=== PATIENT | male | born 1980 | race Caucasian/White ===

== ENCOUNTER 2019-10-13 16:41 | Emergency (ER) | payer OTHER, SELFPAY ==
[2019-10-13 16:44] VITALS: BP 162/97; PULSE 96; RESP 17; TEMP 36.3; O2SAT 100
[2019-10-13] MEDS: TETANUS,DIPHTHERIA,AC PERTUSSIS ADULT (0.5 ML) BOOSTRIX IM (17:48)
--- NOTE | 2019-10-13 20:35 | ED.WOUNDLAC ---
HPI - Wound/Laceration General Chief Complaint: Wound/Laceration Stated Complaint: lac to left hand Time Seen by Provider: 10/13/19 17:06 Source: patient Mode of arrival: ambulatory Limitations: no limitations History of Present Illness HPI narrative: Patient presents with chief complaint of 2 cm laceration to the palmar aspect of left hand that he sustained while working on a vehicle. Patient denies any extensive bleeding or other injuries. Patient continues to have sensation and range of motion to his digits. Patient states that he does not believe he is up-to-date on his tetanus. He denies any other injuries or symptoms. Related Data Home Medications Medication Instructions Recorded Confirmed No Home Medications 10/13/19 10/13/19 Allergies Allergy/AdvReac Type Severity Reaction Status Date / Time No Known Allergies Allergy Verified 10/13/19 16:45 Review of Systems Review of Systems: Narrative: CONSTITUTIONAL: Denies fever, chills, or sweats. EYES: Denies visual changes, redness, or discharge. ENT: Denies rhinorrhea, congestion, sore throat, or otalgia. CARDIOVASCULAR: Denies chest pain, palpitations, or edema. RESPIRATORY: Denies cough or dyspnea. GASTROINTESTINAL: Denies abdominal pain, nausea, vomiting, or diarrhea. GENITOURINARY: Denies dysuria or hematuria. SKIN: Reports laceration denies rash or itching. MUSCULOSKELETAL: Denies back pain, joint pain, or myalgia. NEUROLOGIC: Denies headache, numbness, dizziness, or weakness. PSYCHIATRIC: Denies anxiety or depression. Exam Narrative: Exam Narrative: GENERAL: Well-appearing, well-nourished, and in no acute distress. HEAD: Normocephalic, atraumatic. EYES: PERRLA and EOMI. ENT: Nares clear, no rhinorrhea or epistaxis. Mucous membranes moist. NECK: Supple. No adenopathy or masses. CHEST: Clear to auscultation. No respiratory distress. No wheezes rales or rhonchi HEART: Regular rate and rhythm. EXTREMITIES: Normal range of motion. No edema. SKIN: 2 cm laceration to the palmar aspect of the left palm. No foreign bodies noted. No active bleeding noted. NEURO: No focal deficits. Alert and oriented x3. PSYCH: Normal mood and affect. Course Vital Signs Vital signs: Vital Signs Temperature 97.3 F L 10/13/19 16:44 Pulse Rate 96 10/13/19 16:44 Respiratory Rate 17 10/13/19 16:44 Blood Pressure 162/97 H 10/13/19 16:44 Pulse Oximetry 100 10/13/19 16:44 Temperature 97.3 F L 10/13/19 16:44 Pulse Rate 96 10/13/19 16:44 Respiratory Rate 17 10/13/19 16:44 Blood Pressure 162/97 H 10/13/19 16:44 Pulse Oximetry 100 10/13/19 16:44 Procedures Laceration Laceration 1: Site: hand Side (If applicable): left Size (cm): 2 Description: linear Depth: simple, single layer Local Anesthetic: lidocaine 1% Amount of anesthesia used (mL): 2 Pre-repair: irrigated extensively ====== Skin Level ====== Skin layer closed with: nylon Size (cm): 4-0 Number of sutures: 3 Technique: simple, interrupted ====== Subcutaneous Layer ====== ====== Muscle Layer ====== ====== Tendon Layer ====== Discharge Plan Discharge Clinical Impression: Laceration Patient Disposition: Home, Self-Care Condition: Improved Instructions: Antibiotic Form, Laceration (ED) Additional Instructions: Keep area clean with antibacterial soap and apply antibacterial ointment. Have sutures removed in approximately 7 to 10 days. Follow-up with primary care if any signs of infection present. Return to emergency department if you have any worsening or emergent symptoms. Prescriptions: No Action No Home Medications RF: 0 Follow-up/Referrals: PHYSICIAN,CYTOMETRY TECHNOLOGIST [Primary Care Provider] - Enrique Corea MD [Physician] - Stand Alone Forms: Work/School Release IP Time of Disposition: 18:34 Discharge Date/Time: 10/13/19 18:55
== END 2019-10-13 18:55 | disposition home or self-care (01) ==
PROVIDERS: Emergency Provider Emergency Medicine
DX: S61.412A Laceration without foreign body of left hand, initial encounter (principal); W26.9XXA Contact with unspecified sharp object(s), initial encounter; Z23 Encounter for immunization
CPT/HCPCS: 12001; 90471; 90715; 99282

== ENCOUNTER → 2019-10-15 13:05 | Outpatient (CLI) | payer OTHER, SELFPAY ==
--- NOTE | ~2019-10-15 | XR_ITS ---
XR chest 2V DATE: 10/15/2019 13:20 INDICATION: Wheezing. Tobacco use. TECHNIQUE: 2 views COMPARISON: None FINDINGS: Normal heart size. No hilar or mediastinal enlargement. Moderate bilateral hyperinflation. No pulmonary infiltrate or consolidation, pulmonary vascular congestion or pleural effusion or pneumo thorax. IMPRESSION: Moderate bilateral hyperinflation. No active cardiopulmonary disease Reviewed, dictated and finalized at location B. IMPRESSION: Moderate bilateral hyperinflation. No active cardiopulmonary diseas e
== END ==
PROVIDERS: PCP Emergency Medicine; Visit Provider Emergency Medicine
DX: R06.2 Wheezing (principal); R91.8 Other nonspecific abnormal finding of lung field
CPT/HCPCS: 71046

== ENCOUNTER 2020-02-21 07:29 | Outpatient (CLI) | payer OTHER, SELFPAY ==
--- NOTE | 2020-02-25 09:23 | WPDPFTINT ---
PFT Interpretation PFT Interpretation: This PFT met all criteria for ATS standards and reproducibility FEV/FVC post bronchodilator 64% FEV1 88% FVC 105% TLC 119% RV 140% RV/TLC 35% DLCO 99% when adjusted for alveolar volume but not adjusted for hemoglobin Flow volume loops were normal. Impression: Mild airflow obstruction is present. This pattern may be suggestive of Asthma or COPD. Clinical correlation is advised.
== END 2020-02-21 07:30 | disposition home or self-care (01) ==
PROVIDERS: PCP Emergency Medicine; Visit Provider Internal Medicine Critical Care Medicine
DX: J44.9 Chronic obstructive pulmonary disease, unspecified (principal); R94.2 Abnormal results of pulmonary function studies
CPT/HCPCS: 94060; 94726; 94729

== ENCOUNTER 2020-02-26 09:19 | Outpatient (CLI) | payer OTHER, SELFPAY ==
[2020-02-26 09:46] LABS: Basophils Absolute Auto 0.1 K/mm3 (0.0-0.1); Basophils Percent Auto 0.7 % (0.2-1.2); Eosinophils Absolute Auto 0.2 K/mm3 (0-0.3); Eosinophils Percent Auto 1.9 % (0-4.4); Hematocrit 45.6 % (42.0-52.0); Hemoglobin 15.3 g/dL (14.0-18.0); Immature Granulocyte Absolute 0.04 K/mm3 (0.00-0.031); Immature Granulocyte Percent A 0.5 % (0-0.5); Lymphocytes Absolute Auto 1.45 K/mm3 (0.9-3.2); Lymphocytes Percent Auto 17.5 % (18.3-44.2); Mean Corpuscular HGB Conc 33.6 g/dl (32-36); Mean Corpuscular Hemoglobin 28.8 pg (26-34); Mean Corpuscular Volume 85.7 fl (80-100); Mean Platelet Volume 9.6 fl (7.4-10.4); Monocytes Absolute Auto 0.8 K/mm3 (0.1-0.6); Neutrophils Absolute Auto 5.7 K/mm3 (1.3-6.7); Neutrophils Percent Auto 69.4 % (45.5-73.1); Platelet Count Result 265 k/mm3 (150-375); Red Blood Count 5.32 M/mm3 (4.6-6.20); Red Cell Distribution Width 12.7 % (11.5-14.5); White Blood Count 8.3 K/mm3 (4.5-10.0)
[2020-03-03 11:27] LABS: Alpha-1-Antitrypsin, QN 128 mg/dL (83-199)
== END 2020-02-26 09:20 | disposition home or self-care (01) ==
PROVIDERS: PCP Emergency Medicine; Visit Provider Internal Medicine Critical Care Medicine
DX: J44.9 Chronic obstructive pulmonary disease, unspecified (principal)
CPT/HCPCS: 36415; 82103; 85025

== ENCOUNTER → 2021-03-30 10:02 | Outpatient (CLI) | payer OTHER, SELFPAY ==
--- NOTE | ~2021-03-30 | XR_ITS ---
EXAMINATION: XR chest 2V EXAM DATE: 03/30/2021 10:25 INDICATION: wheezing, hx copd past covid . TECHNIQUE: Frontal and lateral projections of the chest obtained and reviewed. Comparison is made to prior examination from 10/15/2019. FINDINGS: The lungs are clear. There are no pleural effusions. The cardiomediastinal silhouette is within normal limits. There is no pneumothorax suspected. The bones and soft tissues are unremarkab le. IMPRESSION: No acute cardiopulmonary findings. Reviewed, dictated and finalized at location G. [employer]
== END ==
LOC: EXPCRAD 10:04
PROVIDERS: PCP Emergency Medicine; Visit Provider Emergency Medicine
DX: R06.2 Wheezing (principal); Z86.16 Personal history of COVID-19
CPT/HCPCS: 71046

== ENCOUNTER 2021-04-12 07:57 | Outpatient (CLI) | payer OTHER, SELFPAY ==
--- NOTE | 2021-04-20 14:28 | WPDHOMESLEEP ---
Sleep Study - Home Unattended Date of Study: 04/12/21 <Calista Lui DO - Last Filed: 04/20/21 14:38> Ordering Provider: Chalino Cartwright APRN <Calista Lui DO - Last Filed: 04/20/21 14:38> Interpreting Provider: Calista Lui DO <Calista Lui, DO - Last Filed: 04/20/21 14:38> Home Sleep Study Type: Apnea Link Air <Calista Lui DO - Last Filed: 04/20/21 14:38> Height: 1.78 m <Calista Lui DO - Last Filed: 04/20/21 14:38> Weight: 86.183 kg <Calista Lui DO - Last Filed: 04/20/21 14:38> Body Mass Index: 27.2 <Calista Lui DO - Last Filed: 04/20/21 14:38> Neck Circumference (inches): 16.5 <Calista Lui DO - Last Filed: 04/20/21 14:38> [place]: 11 <Calista Lui DO - Last Filed: 04/20/21 14:38> Reason for Sleep Study Daytime hypersomnia, Snoring <Calista Lui DO - Last Filed: 04/20/21 14:38> Sleep History The patient is a 41-year-old male with COPD and anxiety that had a sleep study ordered the Pulmonary group for evaluation of sleep apnea. The patient occasionally awakens from sleep short of breath. He occasionally awakens at night with heartburn, belching or cough. He constantly snores loud enough that others complain. He occasionally has trouble sleeping when he has a [place]. He occasionally wakes up gasping for air throughout the night. He occasionally has breathing problems at night observed by others. He occasionally sweats excessively at night. He occasionally has heart palpitations or irregular heartbeats during the night. He occasionally falls asleep during the day but never while driving. He rarely has trouble at work due to sleepiness. He occasionally experiences loss of muscle tone when extremely emotional. He rarely feels unable to move when falling asleep or waking. He occasionally experiences vivid dreamlike scenes upon awakening or falling asleep. He rarely has nightmares. He occasionally has thoughts racing through his mind. He occasionally feels sad or depressed. He frequently has anxiety. He occasionally kicks during the night. He occasionally notices parts of his body jerk. He occasionally has crawling and aching feelings in the legs as well as leg pain during the night. He rarely grinds of teeth during sleep and rarely awakens with a morning jaw pain. He is occasionally bothered by pain during the day but rarely awakened by pain during the night. He frequently wakes up feeling stiff in the morning with sore or achy muscles. He frequently wakes up with pain in the neck, spine or other joints. He goes to bed at 9:00 p.m. on both weekdays and weekends. It takes him 1-2 hours to fall asleep. He wakes up once or twice throughout the night to use the restroom or get something 8. He is able to fall back asleep within 10-15 minutes. He wakes up at 6:00 a.m. on both weekdays and weekends. He typically gets 6 hours of sleep per night. Will stay in bed for 10 minutes after waking up in the morning. He currently lives with his and child. He does not consume any caffeinated beverages within 2 hours of bedtime. He does not engage in physical exercise before bedtime. He will watch television before falling asleep. He will take naps in afternoon or the evening but they are refreshing. He currently drinks 6 cans of soda per day. He smokes 1 and half packs of cigarettes per day. He will smoke marijuana occasionally. He quit consuming alcohol 7 years ago. <Calista Lui DO - Last Filed: 04/20/21 14:38> [facility] Past Medical History Medical History: Medical History Chronic obstructive pulmonary disease Generalized anxiety disorder Tobacco abuse <Calista Lui DO - Last Filed: 04/20/21 14:38> Surgical History Surgical History: Surgical History (Reviewed 04/20/21 @ 14:34 by Calista Kuhn
[2021-04-20 14:37] VITALS: BMI 27.2
== END 2021-04-13 14:35 | disposition home or self-care (01) ==
LOC: ANHCSM 07:57
PROVIDERS: PCP Emergency Medicine; Visit Provider Nurse Practitioner Family
DX: R06.83 Snoring (principal); G47.10 Hypersomnia, unspecified; G47.33 Obstructive sleep apnea (adult) (pediatric)
CPT/HCPCS: 95806

== ENCOUNTER → 2021-08-30 08:42 | Outpatient (CLI) | payer OTHER, SELFPAY ==
--- NOTE | ~2021-08-30 | XR_ITS ---
EXAMINATION: XR shoulder LT min 2V INDICATION: Left shoulder pain TECHNIQUE: Four views of the left shoulder are submitted. COMPARISON: None FINDINGS: Normal alignment. No fracture. Glenohumeral and acromioclavicular joint spaces are normal. Soft tissues are unremarkable. IMPRESSION: 1. No acute osseous abnormality. Reviewed, dictated and finalized at location A.
== END ==
PROVIDERS: PCP Emergency Medicine; Visit Provider Emergency Medicine
DX: M25.512 Pain in left shoulder (principal)
CPT/HCPCS: 73030

== ENCOUNTER 2023-09-24 08:30 | Emergency (ER) | payer OTHER, SELFPAY ==
--- NOTE | ~2023-09-24 | XR_ITS ---
EXAMINATION: XR chest 2V DATE: 09/24/2023 08:52 INDICATION: Chest pain with dyspnea or wheezing TECHNIQUE: PA and lateral views of the chest were obtained. COMPARISON: Chest radiograph dated 03/30/2021 FINDINGS: The lungs remain clear with no focal airspace opacities, pulmonary edema, pleural effusion or pneumot horax. The cardiomediastinal silhouette is normal. Visualized bones and soft tissues are unremarkable . IMPRESSION: 1. No acute cardiopulmonary disease. Reviewed, dictated and finalized at location A.
--- NOTE | 2023-09-24 08:33 | ECG_ITS ---
Test Date: 2023-09-24 08:36:28 Measurements Intervals [place] Rate: 65 P: -10 CT: 117 QRS: 44 QRSD: 84 T: 36 QT: 352 QTc: 366 Interpretive Statements SINUS RHYTHM WITH SHORT CT INTERVAL BASELINE ARTIFACT- II, III, AVL, AVF BORDERLINE ECG No previous ECG available for comparison Electronically Signed On 09-24-2023 08:42:05 CDT by Cliff Ledbetter D.O.
[2023-09-24 08:35] VITALS: BP 131/98; PULSE 65; RESP 16; TEMP 36.8; O2SAT 97
[2023-09-24 08:41] VITALS: PULSE 66; O2SAT 98
[2023-09-24] MEDS: ASPIRIN 81 MG CHEWABLE TABLET 324 MG PO (08:45)
[2023-09-24 08:47] LABS: Basophils Absolute Auto 0.1 K/mm3 (0.0-0.1); Basophils Percent Auto 0.8 % (0.2-1.2); Eosinophils Absolute Auto 0.2 K/mm3 (0-0.3); Eosinophils Percent Auto 1.6 % (0-4.4); Hematocrit 48.5 % (42.0-52.0); Hemoglobin 16.3 g/dL (14.0-18.0); Immature Granulocyte Absolute 0.05 K/mm3 (0.00-0.031); Immature Granulocyte Percent A 0.4 % (0-0.5); Lymphocytes Absolute Auto 1.65 K/mm3 (0.9-3.2); Lymphocytes Percent Auto 14.2 % (18.3-44.2); Mean Corpuscular HGB Conc 33.6 g/dl (32-36); Mean Corpuscular Hemoglobin 29.4 pg (26-34); Mean Corpuscular Volume 87.5 fl (80-100); Mean Platelet Volume 9.4 fl (7.4-10.4); Monocytes Percent Auto 8.6 % (2.6-8.5); Neutrophils Absolute Auto 8.6 K/mm3 (1.3-6.7); Neutrophils Percent Auto 74.4 % (45.5-73.1); Platelet Count Result 270 k/mm3 (150-375); Red Blood Count 5.54 M/mm3 (4.6-6.20); Red Cell Distribution Width 13.2 % (11.5-14.5); White Blood Count 11.6 K/mm3 (4.5-10.0)
[2023-09-24 08:56] LABS: Alanine Aminotransferase 23 U/L (6-50); Albumin Level 4.6 g/dL (3.5-5.1); Alkaline Phosphatase 69 U/L (38-126); Anion Gap 10 mmol/L (4-12); Aspartate Amino Transferase 23 U/L (17-59); Bilirubin,Total 0.4 mg/dL (0.2-1.3); Blood Urea Nitrogen 25 mg/dL (9-20); Calcium 8.7 mg/dL (8.4-10.2); Carbon Dioxide 20 mmol/L (22-30); Chloride 106 mmol/L (98-107); Estimated Glomerular Filt Rate > 60; Glucose 120 mg/dL (65-110); Lipase 62 U/L (23-300); Potassium 4.3 mmol/L (3.4-5.0); Sodium 136 mmol/L (137-145)
[2023-09-24 08:58] LABS: INR 0.9; Prothrombin Time 12.5 Seconds (11.1-14.7)
[2023-09-24 08:59] LABS: Partial Thromboplastin Time 28.4 Seconds (22.3-36.8)
[2023-09-24 09:08] LABS: Troponin I < 0.012 ng/mL (0.000-0.034)
--- NOTE | 2023-09-24 10:08 | ED.CHESTPAIN ---
HPI - Chest Pain General Chief Complaint: Chest Pain Stated Complaint: chest tightness Time Seen by Provider: 09/24/23 09:54 History of Present Illness HPI narrative: Patient is a 43-year-old male with history of COPD, active smoker, hyperlipidemia, prediabetes here with shortness of breath and chest tightness. He states that symptoms began around 5:00 a.m. this morning. He notes that when he woke up he felt significantly short of breath and wheezy which is similar to prior COPD exacerbations. He then began having some chest tightness which is diffuse across his chest and radiated into his left shoulder. He states symptoms are present for about 4 hours and have now resolved. He is unsure of exertion made his chest pain worse however it did seem to make his shortness of breath worse. he has an increased cough and sputum production with exertion as well. No recent surgery, no history of DVT or PE. He denies fever or chills. No sick contacts. He did see a string cutter about 1 year ago under recommendation of his primary care doctor. He was not experiencing any chest pains at that time but did have a negative stress test and was told he looks good from a cardiac stand point. Related Data Home Medications Medication Instructions Recorded Confirmed atorvastatin 20 mg tablet 20 mg PO 03/28/22 06/02/23 metformin 500 mg tablet,extended 500 mg PO 03/28/22 06/02/23 release 24 hr paroxetine HCl 10 mg tablet (Paxil) 40 mg PO DAILY 09/26/22 06/02/23 aspirin 81 mg tablet,delayed 81 mg PO DAILY 06/02/23 06/02/23 release Allergies Allergy/AdvReac Type Severity Reaction Status Date / Time No Known Allergies Allergy Verified 09/24/23 08:42 Review of Systems Review of Systems: All systems reviewed & are unremarkable except as noted in HPI and below PMFSH Past Medical History Medical History Chronic obstructive pulmonary disease Generalized anxiety disorder Tobacco abuse Surgical History Surgical History History of mandibular surgery Family History Family History Father Cancer Social History Social History (Updated 06/02/23 @ 09:30 by Alyx Diaz MA) Smoking packs per day: 1 Smoking cigarettes per day: 20.0 Years smoked: 25 Smoking pack-years: 25.00 Smoking status: Current every day smoker Second hand tobacco smoke exposure: Yes Alcohol intake: former Substance use: never Substance use type: does not use Living arrangements: with family Occupation/Education: occupation 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 Gender identity (if verbalized by the patient): Male Exam Narrative: GENERAL: Well-appearing, well-nourished, and in no acute distress. HEAD: Normocephalic, atraumatic. EYES: PERRLA and EOMI. ENT: Nares clear. Mucous membranes moist. NECK: Supple. CHEST: Faint wheeze in upper lung davidson bilaterally. No respiratory distress. HEART: Regular rate and rhythm. Normal peripheral pulses. ABDOMEN: Soft, nontender, nondistended. EXTREMITIES: Normal range of motion. No edema. No calf tenderness. SKIN: Warm, dry, no rash. NEURO: No focal deficits. Alert and oriented x3. PSYCH: Normal mood and affect. Course Course Emergency Course: Chart review performed. Patient here with chest pain since 5 am and shortness of breath. Triage vitals normal. Triage protocol lab work reviewed. WBC of 11.6, Electrolytes grossly normal with normal renal function, initial troponin negative. Patient seen evaluated, nontoxic appearing, alert, oriented. He is here with resolved chest tightness and shortness of breath. He does continue to have a wheeze on exam, he notes that his shortness of breath and chest discomfort have resolved and he does not feel as though he needs an additional breathing pao
[2023-09-24 10:09] VITALS: BP 108/84; PULSE 77; RESP 18; O2SAT 98
--- NOTE | 2023-09-24 11:39 | ECG_ITS ---
Test Date: 2023-09-24 11:32:01 Measurements Intervals [place] Rate: 66 P: -24 [place]: 112 QRS: 61 QRSD: 88 T: 53 QT: 346 QTc: 363 Interpretive Statements SINUS RHYTHM WITH SHORT [place] INTERVAL BASELINE ARTIFACT- I, II, III, AVR, AVL, AVF BORDERLINE ECG Compared to ECG 09/24/2023 08:36:28 No significant changes Electronically Signed On 09-24-2023 19:43:09 CDT by Cliff Ledbetter D.O.
[2023-09-24 12:01] LABS: Troponin I < 0.012 ng/mL (0.000-0.034)
[2023-09-24] MEDS: predniSONE 20 MG TABLET 40 MG PO (13:35)
[2023-09-24] MEDS: AMOXICILLIN/CLAVULANATE K 875-125 MG TAB 1 TABLET PO (13:35)
[2023-09-24 13:37] VITALS: BP 117/78; PULSE 76; RESP 19; O2SAT 98
== END 2023-09-24 13:39 | disposition home or self-care (01) ==
PROVIDERS: Emergency Medicine; Emergency Provider Student in an Organized Health Care Education/Training Program; PCP Emergency Medicine
DX: R07.89 Other chest pain (principal); J44.1 Chronic obstructive pulmonary disease with (acute) exacerbation; E78.5 Hyperlipidemia, unspecified; R73.03 Prediabetes; F41.1 Generalized anxiety disorder; Z79.84 Long term (current) use of oral hypoglycemic drugs; Z79.82 Long term (current) use of aspirin; Z79.899 Other long term (current) drug therapy; F17.210 Nicotine dependence, cigarettes, uncomplicated; R94.31 Abnormal electrocardiogram [ECG] [EKG]
CPT/HCPCS: 36415; 71046; 80053; 83690; 84484; 85025; 85610; 85730; 93005; 99284; A9270; J7512

== ENCOUNTER 2024-04-21 13:02 | Emergency (ER) | payer OTHER, SELFPAY ==
--- NOTE | ~2024-04-21 | XR_ITS ---
EXAMINATION: XR lumbar spine 2-3V DATE: 04/21/2024 13:48 INDICATION: 3 days of mid low back pain TECHNIQUE: Anteroposterior and lateral views of the lumbar spine, and cone-down lateral view of the l umbosacral junction were obtained. COMPARISON: None. FINDINGS: 5 degrees lumbar dextrocurvature. Sagittal alignment is normal. Vertebral body and disc heights are n ormal. Mild lumbar facet and bilateral sacroiliac osteoarthritis. Visualized portions of the lung bas es are clear with no pleural effusion. Heart size is normal. IMPRESSION: 1. 5 degrees lumbar dextrocurvature with mild polyarticular osteoarthritis at the lumbar facet and sa croiliac joints. Reviewed, dictated and finalized at location A. [employer] IMPRESSION: 1. 5 degrees lumbar dextrocurvature with mild polyarticular osteoarthritis at t he lumbar facet and sacroiliac joints.
[2024-04-21 13:11] VITALS: BP 133/75; PULSE 104; RESP 16; TEMP 37.2; O2SAT 97
--- NOTE | 2024-04-21 13:24 | ED_ITS ---
HPI - Back Pain/Injury General Chief Complaint: Back Pain/Injury Stated Complaint: lower back pain Time Seen by Provider: 04/21/24 13:15 Source: patient Mode of arrival: ambulatory Limitations: no limitations History of Present Illness HPI Narrative: Abhilash is a 44-year-old male patient presenting to the clinic today with complaints of mid low back pain that started 2 days ago. He denies any known injury. States he has been having some difficulty walking due to the pain. Denies any loss of bowel or bladder. Denies any saddle anesthesia or numbness or tingling going down either leg. He works as a electronic equipment installer. He denies any urinary symptoms. Related Data Allergies Allergy/AdvReac Type Severity Reaction Status Date / Time No Known Allergies Allergy Verified 04/21/24 13:21 Review of Systems Review of Systems: Pertinent positives per HPI. Patient denies any fever, chills, rash, headache, visual changes, dizziness, cough, runny nose, sore throat, shortness of breath, chest pain, palpitations, nausea, vomiting, diarrhea, constipation, abdominal pain, or any urinary issues. [facility], [facility] Past Medical History Medical History Generalized anxiety disorder Tobacco abuse Chronic obstructive pulmonary disease Surgical History Surgical History History of mandibular surgery Family History Family History Father Cancer Social History Social History Smoking packs per day: 1 Smoking cigarettes per day: 20.0 Years smoked: 25 Smoking pack-years: 25.00 Smoking status: Current every day smoker Second hand tobacco smoke exposure: Yes Alcohol intake: former Substance use: never Substance use type: does not use Living arrangements: with family Occupation/Education: occupation 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 Gender identity (if verbalized by the patient): Male Comments At the time of my signature, I reviewed and agree with the nursing past medical, surgical, social, and family history. There is no relevant family history pertinent to the patient complaint. Exam Narrative: General: Well-developed, well nourished, in no apparent distress Head: Normocephalic, atraumatic. Cardio: Regular rate and rhythm, s1 and s2 normal, no murmur appreciated. Resp: Clear to auscultation bilaterally, no rhonchi, rales, wheezing or rubs. Musculoskeletal: No deformity, tender to palpation over L2-L3 L3-L4, grossly normal range of motion, muscle strength strong and equal in BLE. SLT negative, patellar reflexes 2/4 bilaterally, negative foot drop, normal gait and station Course Course Emergency Course: Portions of this record may have been created with voice recognition software. Level of Care: Express Care Visit Vital Signs Vital signs: Vital Signs Temperature 37.2 C 04/21/24 13:11 Pulse Rate 104 H 04/21/24 13:11 Respiratory Rate 16 04/21/24 13:11 Blood Pressure 133/75 04/21/24 13:11 Pulse Oximetry 97 04/21/24 13:11 Oxygen Delivery Room Air 04/21/24 13:11 Temperature 37.2 C 04/21/24 13:11 Pulse Rate 104 H 04/21/24 13:11 Respiratory Rate 16 04/21/24 13:11 Blood Pressure 133/75 04/21/24 13:11 Pulse Oximetry 97 04/21/24 13:11 Oxygen Delivery Room Air 04/21/24 13:11 Vital signs reviewed MDM - Back Pain/Injury MDM Narrative Medical decision making narrative: At the time of visit patient is resting comfortably on the exam table. Patient appears to be nontoxic. Diagnostics: X-ray of the lumbar spine was performed and shows osteoarthritis with a 5 degree dextrocurvature. Plan: I suspect patient has low back pain with osteoarthritis. Prescription for Medrol Dosepak and Flexeril was sent to the pharmacy. Supportive measures were discussed with the patient and they voiced understanding discharge instructions and agrees to treatment plan. Return precautions reviewed Differential Diagnosis Differential diagnosis: Likely lumbar radiculopathy, sciatica, strain of lumbar region and other (Bulging disc) Imaging Data Radiologist's impression: ITS Impressions Lumbar Spine X-Ray 04/21/24 13:53 IMPRESSION: 1. 5 degrees lumbar dextrocurvature with mild polyarticular osteoarthritis at the lumbar facet and sacroiliac joints. Discharge Plan Discharge Clinical Impression: Low back pain Qualifiers: Chronicity: acute Back pain laterality: midline Sciatica presence: without sciatica Qualified Code(s): M54.50 - Low back pain, unspecified Osteoarthritis Qualifiers: Osteoarthritis location: spine Spinal region: lumbosacral Spinal osteoarthritis complication: unspecified spinal osteoarthritis Qualified Code(s): M47.817 - Spondylosis without myelopathy or radiculopathy, lumbosacral region Patient Disposition: Home, Self-Care Condition: Stable Instructions: Antibiotic Form, Acute Low Back Pain (ED), Arthritis (ED) Additional Instructions: Take any prescription medication only as prescribed-Medrol Dosepak and Flexeril Be mindful of sedation precautions given to you if taking a muscle relaxer. May use heat or ice to the affected area Consider massage or chiropractor adjustment if this was discussed with provider May use blue emu, lidocaine patches, or asper cream to affected area- do not apply heat or ice directly over cream- can cause burn. Complete appropriate back stretching exercises. Follow up with your PCP in 3-5 days if symptom persist. Patient Language: Belgian Prescriptions: New methylprednisolone [Medrol (Jaime)] 4 mg tablets,dose pack See Rx Instructions PO .COMPLEX Qty: 21 0RF Rx Instructions: orally per package directions cyclobenzaprine 10 mg tablet 10 mg PO Q8H PRN (Reason: muscle spasm) 7 Days Qty: 21 0RF Follow-up/Referrals: Enrique Corea MD [Primary Care Provider] - Stand Alone Forms: Work/School Release IP Time of Disposition: 14:02 Quality NIHSS Nursing Documentation ED NIHSS nursing documentation: reviewed/agree
== END 2024-04-21 14:07 | disposition home or self-care (01) ==
PROVIDERS: Emergency Provider Nurse Practitioner Family; PCP Emergency Medicine
DX: M47.817 Spondylosis without myelopathy or radiculopathy, lumbosacral region (principal); M51.369 Other intervertebral disc degeneration, lumbar region without mention of lumbar back pain or lower extremity pain; F41.9 Anxiety disorder, unspecified; F17.210 Nicotine dependence, cigarettes, uncomplicated; J44.9 Chronic obstructive pulmonary disease, unspecified
CPT/HCPCS: 72100; 99213; G0463

== ENCOUNTER 2024-07-13 16:19 | Emergency (ER) | payer OTHER, SELFPAY ==
--- NOTE | ~2024-07-13 | XR_ITS ---
EXAM: XR finger 4th RT min 2V, XR finger 5th RT min 2V DATE: 07/13/2024 16:37 HISTORY: lac . COMPARISON: None available. FINDINGS: Normal mineralization. Cortical irregularity at the tips of the right fourth and fifth dis patsy allergies, with overlying soft tissue disruption and subcutaneous gas. Punctate radiopacity adjac ent to the tip of the right fifth distal phalanx, may represent a small ossific fragment or soft tiss ue debris. No lytic or blastic lesion. Joint spaces are maintained. No erosion or periosteal change. IMPRESSION: Nondisplaced fractures of the tips of the fourth and fifth distal phalanges, with overlyi ng soft tissue lacerations and subcutaneous gas, likely indicating open fractures. Punctate ossific f ragment or soft tissue debris adjacent to the tip of the fifth distal phalanx. Reviewed, dictated and finalized at [facility]. IMPRESSION: Nondisplaced fractures of the tips of the fourth and fifth distal p halanges, with overlying soft tissue lacerations and subcutaneous gas, likely i ndicating open fractures. Punctate ossific fragment or soft tissue debris adjac ent to the tip of the fifth distal phalanx.
--- OUTSIDE RECORDS SUMMARY | 2024-07-13 16:45 | XMS_ITS | CONTINUITY OF CARE DOCUMENT ---
Author Name samy pablo Address Unknown Organization [facility] Address [address] [place] [address] Phone [phone] Care Team Providers Care Supervisor [employer] Name Role Phone Kathy ROGERS, Ulysses Unavailable HENRY BROWN MD Unavailable [phone] HENRY BROWN MD Unavailable [phone] PROBLEMS Condition Status Date Provider Notes Tobacco dependence, continuous active Prince Chavez MD Screening active Ulysses Chavez MD Overweight active Ulysses Chavez MD HTN borderline completed - Ulysses Chavez MD SLEEP APNEA;ON CPAP active Ulysses Chavez MD Hyperlipidemia;with high crp and lpa active Ulysses Chavez MD Vitamin D deficiency active Ulysses Chauhan PREDIABETES active Ulysses Chavez MD Chest pain, atypical active Ulysses Chauhan Cardiology examination completed 4 - Ulysses Chavez MD COPD active Ulysses Chavez MD covid 19;22 after vaccine active Ulysses emerson MD ENCOUNTERS Date Type Provider Location Encounter Diag nosis 6 - 6 In-person encounter Office Visit Ulysses Chavez MD [facility] [place] Office HTN borderlineCardiology examination 4 - 4 In-person encounter Office Visit Howie Ruiz MD [place] Office 4 - 4 In-person encounter Office Visit Ulysses Chavez MD [place] [facility] covid 19;22 after vaccineCOPDTobacco dependence, continuousScreeningOverweightSLEEP APNEA;ON CPAPHyperlipidemia;with high crp and lpaVitamin D deficiencyPREDIABETESChest pain, atypical VITAL SIGNS Date Observation Value Provider Body Mass Index (Ratio) 25.54 kg/m2 Alexandria Chavez MD blood pressure, cuff size regular [facility] blood pressure, diastolic 80 mm[Hg] [facility] blood pressure, systolic 125 mm[Hg] Krissalyse mikelsimone [place] oxygen saturation, oximetry 97 % [facility] pulse rate 71 /min [facility] respiratory rate E&M 12 /min [facility] weight E&M 178 [lb_av] [facility] height E&M 70 [in_i] [facility] weight E&M 174 [lb_av] Keren connelly Body Mass Index (Ratio) 25.02 kg/m2 Sajan Ruiz MD blood pressure, diastolic 81 mm[Hg] Say melisa [place] blood pressure, systolic 125 mm[Hg] Saraarmando yanez [place] oxygen saturation, oximetry 96 % [facility] pulse rate 75 /min [facility] blood pressure, cuff size regular Say melisa [place] weight E&M 174.4 [lb_av] Sayaron [place] height E&M 70 [in_i] [facility] [place] weight E&M 183 [lb_av] Martínez oakes Body Mass Index (Ratio) 26.25 kg/m2 Alexandria Chavez MD blood pressure, diastolic 88 mm[Hg] Lakshmi Myles blood pressure, systolic 142 mm[Hg] Rigoberto Myles oxygen saturation, oximetry 97 % Zelda Myles pulse rate 75 /min Zelda Hayden nevin height E&M 70 [in_i] Zelda Hayden nevin weight E&M 183 [lb_av] Zelda Hayden nevin respiratory rate E&M 16 /min Sydnie Myles blood pressure, cuff size large Lakshmi Myles ALLERGIES No Known Drug Allergies RESULTS Date Observation Value Provider Reference Range Interpretation Location 3 C-reactive protein, by highly sensitive test 8.4 mg/L [facility] [place] [facility] [place] [address] [address] [facility] [id number] Kiran Heaton D.O., MPH HISTORY OF MEDICATION USE Medication Status Instructions Dates Provider Indications Com ments paroxetine HCl 40 mg tablet active Ulysses Chavez MD aripiprazole 10 mg tablet active Ulysses Chavez MD Brejeanette Aerosphere 160-9-4.8 mcg/actuation HFA aerosol inhaler active Ulysses Chavez MD Aspirin Childrens 81 mg tablet,chewable active TAKE 1 TABLET BY MOUTH EVERY DAY 6 Ulysses Chavez MD metformin (Glucophage XR) 500 mg tablet extended release 24 hr active TAKE 1 TABLET BY MOUTH EVERY DAY/ PLEASE SCHEDULE AN APPOINTMENT FOR FURTHER REFILLS 9 Autumn Watts atorvastatin 20 mg tablet active TAKE 1 TABLET BY MOUTH EVERY DAYLS. 3 Ulysses Chavez MD metformin (Glucophage XR) 500 mg tablet extended release 24 hr completed TAKE 1 TABLET BY MOUTH EVERY DAY/ Please schedule an appointment for further refills. 3 - 9 Autumn Watts metformin (Glucophage XR) 500 mg tablet extended release 24 hr completed TAKE 1 TABLET BY MOUTH EVERY DAY 9 - 3 Janay Villatoro atorvastatin 20 mg tablet completed TAKE 1 TABLET BY MOUTH EVERY DAY 4 - 3 Janay Villatoro ergocalciferol (vitamin D2) 1,250 mcg (50,000 unit) capsule active TAKE 1 CAPSULE BY MOUTH ONCE PER WEEK 4 Ulysses Chavez MD metformin 500 mg tablet extended release 24 hr completed Take 1 tablet by mouth once a day 4 - 9 Janay Garciazalore 81 mg capsule completed Take 1 capsule by mouth every morning 4 - 6 Ulysses Chavez MD Symbicort 160-4.5 mcg/actuation HFA aerosol inhaler completed - 6 Ulysses Chavez MD Spiriva Respimat 2.5 mcg/actuation mist completed - 6 Ulysses Chavez MD albuterol sulfate 90 mcg/actuation HFA aerosol inhaler active Ulysses Chavez MD SOCIAL HISTORY Date Observation Value Provider smoking/tobacco cess ation, patient education and counseling yes Ulysses Chavez MD smoking history, tot al pack/day 1 Ulysses Chavez MD cigarette use yes Ulysses Chavez MD smoking status Current every day smoker H bouchra Chavez MD smoking history, tot al pack/day 1 Howie Ruiz MD cigarette use yes Howie Chauhan smoking status Current every day smoker T bala Ruiz MD social history E&M S moking History: P atient currently smokes every day. Ulysses Chavez MD social history reviewed E&M revi ewed - no changes required Ulysses Chavez MD smoking history, tot al pack/day 1 Zelda Myles cigarette use yes Zelda [place] smoking status Current every day smoker M josh Myles INSURANCE PROVIDERS Payer name Policy type / Coverage type [place] red libertarian ID [employer] Choice [employer] Commercial insurance company [id number] ADVANCE DIRECTIVES Name Date DISCUSSED - NO DECISION MADE TREATMENT PLAN Date Name Performer [id number],C,neg echo psa and uacr and tsh Ulysses Chavez MD [id number],C,neg stress Owne andrzej Chavez MD [id number],S, H is updated medication list for this problem includes: Atorvastatin 20 Mg Tablet (Atorvastatin) ..... Take 1 tablet by mouth every day Ulysses Chavez MD [id number],S, Ulysses Serot armando ROGERS [id number],S, Ulysses Serot armando ROGERS [id number],C,5.7 Ulysses Se rota [id number],S, Ulysses Serot a [id number],S, Ulysses Serot a [id number],S, Ulysses Serot a [id number],S, Ulysses Serot a [id number],B, Ulysses Serot a [id number],B,neg psa and u acr and tsh Ulysses Chavez MD Cardiology Ulysses Chavez MD Cardiology: 5 .7 Ulysses Chavez MD Cardiology Ulysses Chavez MD Cardiology: T he following medications were removed from the medication list: Symbicort 160-4.5 Mcg/actuation Hfa Aerosol Inhaler (Budesonide-formoterol) Spiriva Respimat 2.5 Mcg/actuation Mist (Tiotropium bromide) His updated medication list for this problem includes: Breztri Aerosphere 160-9-4.8 Mcg/actuation Hfa Aerosol Inhaler (Dduyexqeqf-bpmradpm-bvurfjhhoy) Albuterol Sulfate 90 Mcg/actuation Hfa Aerosol Inhaler (Albuterol sulfate) Pulmonary Functions Reviewed: O 2 sat: 97 (01/27/2024) Ulysses Chavez MD Cardiology Ulysses Chavez MD Cardiology Ulysses Chavez MD Cardiology: n eg echo psa and uacr and tsh Ulysses Chavez MD Cardiology Ulysses Chavez MD Cardiology:neg stress and echo H bouchra Chavez MD Cardiology Howie Ruiz MD Cardiology Howie Ruiz MD Cardiology Howie Ruiz MD Cardiology:not wearing CPAP Sjaan Ruiz MD Cardiology Howie Ruiz MD :neg echo psa and uacr and tsh H bouchra Chavez MD :neg stress Ulysses Chavez MD Cardiology: H is updated medication list for this problem includes: Atorvastatin 20 Mg Tablet (Atorvastatin) ..... Take 1 tablet by mouth every day Ulysses Chavez MD Cardiology Ulysses Chavez MD Cardiology Ulysses Chavez MD Cardiology:5.7 Ulysses Chavez MD Cardiology Ulysses Chavez MD Cardiology Ulysses Chavez MD Cardiology Ulysses Chavez MD Cardiology Ulysses Chavez MD Cardiology Ulysses Chavez MD Cardiology:neg psa and uacr and tsh Ulysses Chavez MD Date Name DLCO - 74786 FRC - 90288 FVC - 22609 CXR- PA/Lat Lipoprotein (a) CT, Coronary Calcium Score CT, Coronary Calcium Score Complete Echo Stress Routine CXR- PA/Lat RPM (remote patient monitoring) Stress Routine Complete Echo CT, Coronary Calcium Score CRP, high sensitivit y HISTORY OF PROCEDURES Procedure Date Procedure Name Provider Procedure Notes S tatus Complex e/m visit add on Howie Ruiz MD completed EKG Howie Ruiz MD completed SAMPSON Chavez MD complete d
[2024-07-13 16:51] VITALS: BP 142/97; PULSE 88; RESP 18; TEMP 36.4; O2SAT 98
--- OUTSIDE RECORDS SUMMARY | 2024-07-13 17:28 | XMS_ITS | CONTINUITY OF CARE DOCUMENT ---
Author Name samy pablo Address Unknown Organization [facility] Address [address] [place] [address] Phone [phone] Care Team Providers Care Production Cook Name Role Phone Ulysses Chavez MD Unavailable HENRY BROWN MD Unavailable [phone] HENRY BROWN MD Unavailable [phone] PROBLEMS Condition Status Date Provider Notes Cardiology examination completed 4 - Ulysses Chavez MD Chest pain, atypical active Ulysses Chauhan PREDIABETES active Ulysses Chavez MD Vitamin D deficiency active Ulysses Chauhan Hyperlipidemia;with high crp and lpa active Ulysses Chavez MD SLEEP APNEA;ON CPAP active Ulysses Chavez MD HTN borderline completed - Ulysses Chavez MD Overweight active Ulysses Chavez MD Screening active Ulysses Chavez MD Tobacco dependence, continuous active Prince Chavez MD COPD active Ulysses Chavez MD covid 19;22 after vaccine active Ulysses emerson MD ENCOUNTERS Date Type Provider Location Encounter Diag nosis 6 - 6 In-person encounter Office Visit Ulysses Chavez MD [facility] Office HTN borderlineCardiology examination 4 - 4 In-person encounter Office Visit Howie Ruiz MD [place] Office 4 - 4 In-person encounter Office Visit Ulysses Chavez MD [place] [facility] covid 19;22 after vaccineCOPDTobacco dependence, continuousScreeningOverweightSLEEP APNEA;ON CPAPHyperlipidemia;with high crp and lpaVitamin D deficiencyPREDIABETESChest pain, atypical VITAL SIGNS Date Observation Value Provider Body Mass Index (Ratio) 25.54 kg/m2 Alexandria Chavez MD blood pressure, cuff size regular [facility] blood pressure, diastolic 80 mm[Hg] [facility] blood pressure, systolic 125 mm[Hg] Krissalyse mikelsimone [place] oxygen saturation, oximetry 97 % [facility] pulse rate 71 /min [facility] respiratory rate E&M 12 /min [facility] weight E&M 178 [lb_av] [facility] height E&M 70 [in_i] [facility] weight E&M 174 [lb_av] Keren connelly Body Mass Index (Ratio) 25.02 kg/m2 Sajan Ruiz MD blood pressure, diastolic 81 mm[Hg] Say melisa [place] blood pressure, systolic 125 mm[Hg] Saraarmando yanez [place] oxygen saturation, oximetry 96 % [facility] pulse rate 75 /min [facility] blood pressure, cuff size regular Say melisa [place] weight E&M 174.4 [lb_av] Sayaron [place] height E&M 70 [in_i] [facility] [place] weight E&M 183 [lb_av] Martínez oakes Body [...] sensitive test 8.4 mg/L [facility] [place] [facility] [place] [address] [address] [address] Kiran Heaton D.O., MPH HISTORY OF MEDICATION [...] Payer name Policy type / Coverage type [place] red republican ID [employer] Choice Pos II Commercial insurance company [id number] ADVANCE DIRECTIVES Name Date DISCUSSED - NO DECISION MADE TREATMENT PLAN Date Name Performer [id number],C,neg echo psa and uacr and tsh Ulysses Chavez MD [id number],C,neg stress Owen andrzej Chavez MD [id number],S, H is updated medication list for this problem includes: Atorvastatin 20 Mg Tablet (Atorvastatin) ..... Take 1 tablet by mouth every day Ulysses Chavez MD [id number],S, Ulysses Serot armando ROGERS [id number],S, Ulysses Serot armando ROGERS [id number],C,5.7 Ulysses Se rota [id number],S, Ulysses Serot a [id number],S, Ulysses Serot a [id number],S, Ulysses Serot a [id number],S, Ulysses Serot a [id number],B, Ulysses Serot a [id number],B,neg psa and u acr and tsh Ulysses Chavez MD Cardiology Ulysses Chavez MD Cardiology: 5 .7 Ulysses Chavez MD Cardiology Ulysses Chavez MD Cardiology: T he following medications were removed from the medication list: Symbicort 160-4.5 Mcg/actuation Hfa Aerosol Inhaler (Budesonide-formoterol) Spiriva Respimat 2.5 Mcg/actuation Mist (Tiotropium bromide) His updated medication list for this problem includes: Breztri Aerosphere 160-9-4.8 Mcg/actuation Hfa Aerosol Inhaler (Gcapszygcf-dgovdxta-bekkvvhlvz) Albuterol Sulfate 90 Mcg/actuation Hfa Aerosol Inhaler [...] Cardiology Howie Ruiz MD Cardiology:not wearing CPAP Sajan Ruiz MD Cardiology Howie Ruiz MD :neg [...] Ulysses Chavez MD Date Name DLCO - 06938 FRC - 86161 FVC - 45989 CXR- PA/Lat Lipoprotein (a) CT, Coronary Calcium [...]
[2024-07-13] MEDS: KETOROLAC (*BKC) 60 MG/2 ML VIAL IM (18:01)
[2024-07-13] MEDS: WATER, STERILE FOR INJECTION 10 ML VIAL XX (18:01)
[2024-07-13] MEDS: ceFAZolin SODIUM 1 GM VIAL IM (18:01)
[2024-07-13] MEDS: LIDOCAINE 1% LOCAL INJ 10 ML VIAL INFILTRATE (18:38)
[2024-07-13] MEDS: CELLULOSE OXIDIZED 2 x 14 INCH 1 PKT XX (18:38)
--- NOTE | 2024-07-13 19:26 | ED_ITS ---
HPI - Wound/Laceration General Chief Complaint: Wound/Laceration <AMIRA Rios Last Filed: 07/13/24 23:00> Stated Complaint: finger vs band saw <AMIRA Rios Last Filed: 07/13/24 23:00> Time Seen by Provider: 07/13/24 16:57 <AMIRA Rios Last Filed: 07/13/24 23:00> Source: patient <AMIRA Rios Last Filed: 07/13/24 23:00> Mode of arrival: ambulatory <AMIRA Rios Last Filed: 07/13/24 23:00> Limitations: no limitations <AMIRA Rios Last Filed: 07/13/24 23:00> History of Present Illness HPI narrative: Patient is a 44-year-old male who presents the ED with report of lacerations to his right 4th and 5th digits. Patient works as a transmission assembler. He was at work today using a band saw to cut meat when he sustained lacerations to his right 4th and 5th digits. He sustained a large skin avulsion to 4th digit through the nail. He denies any other injuries. Denies numbness. Tetanus is up-to-date. <Marjorie Mcmanus PA-C - Last Filed: 07/13/24 23:00> Related Data Allergies/Adverse Reactions: Allergies Allergy/AdvReac Type Severity Reaction Status Date / Time No Known Allergies Allergy Verified 07/13/24 16:22 <AMIRA Rios Last Filed: 07/13/24 23:00> Review of Systems 2 Review of Systems: All systems reviewed & are unremarkable except as noted in HPI. <AMIRA Rios Last Filed: 07/13/24 23:00> All systems reviewed & are unremarkable except as noted in HPI and below < AMIRA Rios Last Filed: 07/13/24 23:00> [facility] Past Medical History Medical History: Medical History Generalized anxiety disorder Tobacco abuse Chronic obstructive pulmonary disease <Marjorie Mcmanus PA-C - Last Filed: 07/13/24 23:00> Surgical History Surgical History: Surgical History History of mandibular surgery <Marjorie Mcmanus PA-C - Last Filed: 07/13/24 23:00> Family History Family History: Family History Father Cancer <Marjorie Mcmanus PA-C - Last Filed: 07/13/24 23:00> Social History Social History: Social History Smoking packs per day: 1 Smoking cigarettes per day: 20.0 Years smoked: 25 Smoking pack-years: 25.00 Smoking status: Current every day smoker Second hand tobacco smoke exposure: Yes Alcohol intake: former Substance use: never Substance use type: does not use Living arrangements: with family Occupation/Education: occupation 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 Gender identity (if verbalized by the patient): Male <Marjorie Mcmanus PA-C - Last Filed: 07/13/24 23:00> Exam 2 Narrative: GENERAL: Appears older than stated age, well-nourished, non-toxic, in no acute distress. HEAD: Normocephalic, atraumatic. RESPIRATORY: Airway patent, respirations nonlabored. CARDIOVASCULAR: Regular rate and rhythm. Radial pulses intact. MUSCULOSKELETAL: Moves all extremities. No gross deformities. Laceration to distal tip of R 5th digit, extending midway through nail bed into distal finger tip pad. Disruption of distal lateral portion of 5th digit nail but still attached. 4th digit with large skin avulsion beginning just proximal from DIP completely avulsing portion of skin down to distal finger tip and majority of nail. Small thin vertical portion of medial nail plate still intact. Mild active bleeding/persistent oozing in center of avulsion. No obvious bone fragments identified. No pulsatile bleeding. Sensation is intact throughout all digits. Capillary refill intact. Full range of motion of fingers. SKIN: Warm, dry, normal color. NEURO: A&O X3. Speech clear. PSYCHIATRIC: Appropriate mood and affect. Normal interaction. <Marjorie Mcmanus PA-C - Last Filed: 07/13/24 23:00> Extrem: Hand Right Back: 1. large skin avulsion <AMIRA Rios Last Filed: 07/13/24 23:00> Course FOREIGN POLICY OFFICER/PA Physician Supervision For this patient encounter, I reviewed the FOREIGN POLICY OFFICER or PA documentation, treatment plan, and medical decision making; and I had [id number] time with this patient. <Lester Rodriguez MD - Last Filed: 07/14/24 19:05> Vital Signs Vital signs: Vital Signs Temperature 97.6 F 07/13/24 16:51 Pulse Rate 88 07/13/24 16:51 Respiratory Rate 18 07/13/24 16:51 Blood Pressure 142/97 H 07/13/24 16:51 Pulse Oximetry 98 07/13/24 16:51 Temperature 97.6 F 07/13/24 16:51 Pulse Rate 88 07/13/24 16:51 Respiratory Rate 18 07/13/24 16:51 Blood Pressure 142/97 H 07/13/24 16:51 Pulse Oximetry 98 07/13/24 16:51 <Marjorie Mcmanus PA-C - Last Filed: 07/13/24 23:00> Vital Signs Temperature 97.6 F 07/13/24 16:51 Pulse Rate 88 07/13/24 16:51 Respiratory Rate 18 07/13/24 16:51 Blood Pressure 142/97 H 07/13/24 16:51 Pulse Oximetry 98 07/13/24 16:51 Temperature 97.6 F 07/13/24 16:51 Pulse Rate 88 07/13/24 16:51 Respiratory Rate 18 07/13/24 16:51 Blood Pressure 142/97 H 07/13/24 16:51 Pulse Oximetry 98 07/13/24 16:51 <Lester Rodriguez MD - Last Filed: 07/14/24 19:05> Procedures Laceration Laceration 1: Date: 07/13/24 <Marjorie Mcmanus PA-C - Last Filed: 07/13/24 23:00> Time: 18:45 <AMIRA Rios Filed: 07/13/24 23:00> Site: hand <AMIRA Rios Filed: 07/13/24 23:00> Side (If applicable): right (4th digit) <AMIRA Rios Filed: 07/13/24 23:00> Description: irregular (skin avulsion) <AMIRA Rios Filed: 07/13/24 23:00> Depth: simple, single layer <AMIRA Rios Filed: 07/13/24 23:00> Local Anesthetic: other anesthetic (digital block) <AMIRA Rios Filed: 07/13/24 23:00> Pre-repair: wound explored, irrigated and irrigated extensively <AMIRA Rios Filed: 07/13/24 23:00> ====== Skin Level ======: Skin layer closed with: other (surgicell) <AMIRA Rios Filed: 07/13/24 23:00> ====== Subcutaneous Layer ======: ====== Muscle Layer ======: ====== Tendon Layer ======: Laceration 2: Date: 07/13/24 <AMIRA Rios Filed: 07/13/24 23:00> Time: 18:50 <AMIRA Rios Filed: 07/13/24 23:00> Site: hand <AMIRA Rios Filed: 07/13/24 23:00> Side (If applicable): right (5th digit) <AMIRA Rios Filed: 07/13/24 23:00> Size (cm): 0.25 <AMIRA Rios Last Filed: 07/13/24 23:00> Description: linear and irregular <AMIRA Rios Last Filed: 07/13/24 23:00> Depth: simple, single layer <AMIRA Rios Last Filed: 07/13/24 23:00> Local Anesthetic: other anesthetic (digital block) <AMIRA Rios Last Filed: 07/13/24 23:00> Pre-repair: wound explored, irrigated and irrigated extensively <AMIRA Rios Last Filed: 07/13/24 23:00> ====== Skin Level ======: Skin layer closed with: nylon <AMIRA Rios Last Filed: 07/13/24 23:00> Size (cm): 5-0 <AMIRA Rios Last Filed: 07/13/24 23:00> Number of sutures: 2 <AMIRA Rios Filed: 07/13/24 23:00> Technique: simple, interrupted <AMIRA Rios Last Filed: 07/13/24 23:00> ====== Subcutaneous Layer ======: ====== Muscle Layer ======: ====== Tendon Layer ======: Nerve Block Nerve Block 1: Nerve block date: 07/13/24 <AMIRA Rios Last Filed: 07/13/24 23:00> Nerve block time: 18:30 <AMIRA Rios Filed: 07/13/24 23:00> Time out performed: Yes <AMIRA Rios Last Filed: 07/13/24 23:00> Local Anesthetic: lidocaine 1% <AMIRA Rios Last Filed: 07/13/24 23:00> Amount of anesthesia used (mL): 4 <Marjorie Mcmanus PA-C - Last Filed: 07/13/24 23:00> Side: right <AMIRA Rios Last Filed: 07/13/24 23:00> Nerve Blocks: digital (4th) <Marjorie Mcmanus PA-C - Last Filed: 07/13/24 23:00> Procedure Successful: Yes <Marjorie Mcmanus PA-C - Last Filed: 07/13/24 23:00> Patient Tolerated Procedure: well and no complications <Marjorie Mcmanus PA-C - Last Filed: 07/13/24 23:00> Complications: none <AMIRA Rios Last Filed: 07/13/24 23:00> Nerve Block 2: Nerve block date: 07/13/24 <AMIRA Rios Last Filed: 07/13/24 23:00> Nerve block time: 18:35 <AMIRA Rios Last Filed: 07/13/24 23:00> Time out performed: Yes <AMIRA Rios Last Filed: 07/13/24 23:00> Local Anesthetic: lidocaine 1% <AMIRA Rios Last Filed: 07/13/24 23:00> Amount of anesthesia used (mL): 4 <AMIRA Rios Last Filed: 07/13/24 23:00> Side: right <AMIRA Rios Last Filed: 07/13/24 23:00> Nerve Blocks: digital (5th) <AMIRA Rios Last Filed: 07/13/24 23:00> Procedure Successful: Yes <AMIRA Rios Last Filed: 07/13/24 23:00> Patient Tolerated Procedure: well and no complications <AMIRA Rios Last Filed: 07/13/24 23:00> Complications: none <Marjorie Mcmanus PA-C - Last Filed: 07/13/24 23:00> MDM - Wound/Laceration MDM Narrative Medical decision making narrative: Patient presented to ED with lacerations to right 4th and 5th digits. Fourth digit with large skin avulsion. Fifth digit with smaller laceration involving nail bed and distal finger pad. Vital signs stable. Patient neurovascularly intact. Good range of motion. No evidence of tendon injury. Tetanus is up-to-date. X-rays of both fingers did show evidence of distal phalanx fractures. Consistent with open fractures. Patient given dose of Ancef in the ED. Digital nerve blocks were performed to 4th and 5th digits with adequate anesthesia. Fifth digit laceration was repaired with 2 sutures without complications. Dressing placed. Fourth digit required temporary finger TourniCot for hemostasis, avulsion was repaired with Surgicel with adequate hemostasis achieved. TourniCot was removed. Large bulky dressing was placed. Patient tolerated procedures well. Will be discharged to follow-up with hand surgery for further evaluation and wound care. Will be discharged on Keflex for open fracture prophylaxis. Will also prescribe short course of pain medication for home use. Patient given work note to be off until seen by Hand surgery. Given strict return precautions. Patient voiced understanding. In agreement with plan. Feels comfortable going home. Discharged in stable condition. <Marjorie Mcmanus PA-C - Last Filed: 07/13/24 23:00> Medical Records Attestation: I reviewed the patient's medical records. <Marjorie Mcmauns PA-C - Last Filed: 07/13/24 23:00> Imaging Data Attestation: I personally reviewed and interpreted this imaging study as follows: < Marjorie Mcmanus PA-C - Last Filed: 07/13/24 23:00> Radiologist's impression: ITS Impressions Finger X-Ray 07/13/24 17:30 IMPRESSION: Nondisplaced fractures of the tips of the fourth and fifth distal phalanges, with overlying soft tissue lacerations and subcutaneous gas, likely indicating open fractures. Punctate ossific fragment or soft tissue debris adjacent to the tip of the fifth distal phalanx. Finger X-Ray 07/13/24 17:30 IMPRESSION: Nondisplaced fractures of the tips of the fourth and fifth distal phalanges, with overlying soft tissue lacerations and subcutaneous gas, likely indicating open fractures. Punctate ossific fragment or soft tissue debris adjacent to the tip of the fifth distal phalanx. <AMIRA Rios Last Filed: 07/13/24 23:00> Discharge Plan Discharge Clinical Impression: Laceration of finger of right hand, Fracture of distal phalanx of finger of right hand, Avulsion of skin of finger <AMIRA Rios Last Filed: 07/13/24 23:00> Patient Disposition: Home <AMIRA Rios Last Filed: 07/13/24 23:00> Condition: Stable <AMIRA Rios Last Filed: 07/13/24 23:00> Instructions: Antibiotic Form, Care For Your Stitches (ED), Laceration (ED), Skin Avulsion (ED), Skin Adhesive Care (ED) <AMIRA Rios Last Filed: 07/13/24 23:00> Additional Instructions: Take antibiotics as prescribed. Keep fingers bandaged and protected. Avoid water over fingers over the next 24 hours. Change bandages daily or whenever visibly soiled. Do not attempt to remove Surgicel whatsoever. Allow this to fall off on its own. Recommend Tylenol/ibuprofen as needed for pain. [place] as needed for more severe pain. Elevate hand whenever able. Follow-up with hand surgery for further evaluation. Call office on Monday to make appointment. Return to the ED if you experience recurrent injury, severe pain, severe bleeding, numbness, fevers, or any other symptoms of concern. <AMIRA Rios Last Filed: 07/13/24 23:00> Patient Language: Malay <AMIRA Rios Last Filed: 07/13/24 23:00> Prescriptions: New hydrocodone-acetaminophen 5-325 mg tablet 1 tablet PO Q6H PRN (Reason: pain) Qty: 10 0RF cephalexin 500 mg capsule 500 mg PO Q6H 7 Days Qty: 28 0RF No Action methylprednisolone [Medrol (Jaime)] 4 mg tablets,dose pack See Rx Instructions PO .COMPLEX Qty: 21 0RF Rx Instructions: orally per package directions cyclobenzaprine 10 mg tablet 10 mg PO Q8H PRN (Reason: muscle spasm) 7 Days Qty: 21 0RF <Marjorie Mcmanus PA-C - Last Filed: 07/13/24 23:00> Follow-up/Referrals: Venus Pete MD [Physician] - (HAND/PLASTIC SURGERY) Enrique Corea MD [Primary Care Provider] - <Marjorie Mcmanus PA-C - Last Filed: 07/13/24 23:00> Stand Alone Forms: Work/School Release IP <Marjorie Mcmanus PA-C - Last Filed: 07/13/24 23:00> Time of Disposition: 19:28 <Marjorie Mcmanus PA-C - Last Filed: 07/13/24 23:00> 19:28 <Lester Rodriguez MD - Last Filed: 07/14/24 19:05>
== END 2024-07-13 19:46 | disposition home or self-care (01) ==
PROVIDERS: Emergency Provider Physician Assistant; PCP Emergency Medicine
DX: S61.314A Laceration without foreign body of right ring finger with damage to nail, initial encounter (principal); S61.316A Laceration without foreign body of right little finger with damage to nail, initial encounter; S62.634A Displaced fracture of distal phalanx of right ring finger, initial encounter for closed fracture; S62.636A Displaced fracture of distal phalanx of right little finger, initial encounter for closed fracture; J44.9 Chronic obstructive pulmonary disease, unspecified; F17.210 Nicotine dependence, cigarettes, uncomplicated; W31.2XXA Contact with powered woodworking and forming machines, initial encounter
CPT/HCPCS: 11730; 12001; 73140; 96372; 99284; J0690; J1885; J2003

== ENCOUNTER 2024-08-09 12:22 | Outpatient (RCR) | payer OTHER, SELFPAY ==
--- NOTE | 2024-08-09 13:05 | OTOPEVDC ---
Assessment and note entered by Monico Ross, OTR/L, CHT Thank you for referring Abhilash Altamirano to [facility].? An evaluation has been completed. No further treatment is needed. Evaluation Information Assessment Status Evaluation Diagnosis S62.636A Displaced fracture of distal phalanx of right little finger Subjective Information Patient presents with an order for a custom right ring finger splint to protect open wound on the dorsum of his finger. He is s/p saw injury at work 07/13/24. Reported Pain Level Pain Score 0: Self Report Additional Pain Score Comments No pain at rest 3/10 pain with hook fist. Assessment OT Clinical Summary Patient referred to hand therapy following a saw injury to the right hand. The order is for a custom orthosis for the right ring finger to protect the open wound on the dorsum of the finger . Patient presents for the initial appointment today, 4 weeks out from his injury, with a healed wound. It does not appear that a protective orthosis is indicated at this time. Patient is able to make a functional hook fist and full fist. No further skilled OT indicated at this time. Plan of Care OT Services Indicated No
== END 2024-08-29 11:54 | disposition home or self-care (01) ==
LOC: ANHOT 12:22
PROVIDERS: Visit Provider Plastic Surgery
DX: S62.636A Displaced fracture of distal phalanx of right little finger, initial encounter for closed fracture (principal)
CPT/HCPCS: 97165

== ENCOUNTER 2024-09-21 19:13 | Emergency (ER) | payer OTHER, SELFPAY ==
--- NOTE | ~2024-09-21 | CT_ITS ---
CT soft tissue neck w con Ordering provider: Barbra Mitchell MD History: 44 years Male with . sore throat, difficulty swallowing . Comparison: None. Technique: CT soft tissues neck was performed with contrast. . Automated exposure control and iterat tran reconstruction technique were employed. The dose-length product was 440.63 mGy-cm. 75 mL Omnipaqu e 350 was given IV. Findings: LOWER HEAD: The visualized brain parenchyma, optic globes/orbits and mastoids are normal. The visua lized paranasal sinuses are well aerated. SALIVARY GLANDS: Normal. THYROID: Normal. SUPRAHYOID DEEP SPACES: Parapharyngeal lymph nodes are seen with the largest on the right side measur es 1.5 cm. The largest on the left measures 1.1 cm. Enlarged posterior triangular lymph nodes are seen with the largest on the right side measures 1.5 cm . The largest on the left measures 1.4 cm. Lymph nodes in the supraclavicular area with the largest o n the left measures 1 cm and on the right 1.1 cm.. CAROTID ARTERIES: Normal. JUGULAR VEINS: Normal. TONSILS: Grossly enlarged tonsils. No definite abscess seen. Calcifications are seen in both tonsils. ORAL CAVITY: Partially obscured by dental amalgam but normal as visualized. Slightly enlarged lingula r tonsils. PHARYNX, LARYNX AND TRACHEA: Patent and normal. Soft tissue density is seen in the postnasal space. Clinical evaluation advised. SUPERFICIAL SOFT TISSUES: Normal. No neck mass. THORACIC INLET/VISUALIZED UPPER CHEST: Normal. SKELETAL: Normal. IMPRESSION: 1. Grossly enlarged tonsils with enlargement of the lingual tonsils. 2. Bilateral lymphadenopathy in the parapharyngeal, posterior triangle and supraclavicular areas. Reviewed, dictated and finalized at location A. IMPRESSION: 1. Grossly enlarged tonsils with enlargement of the lingual tonsils. 2. Bilateral lymphadenopathy in the parapharyngeal, posterior triangle and sup raclavicular areas.
[2024-09-21 19:18] VITALS: BP 119/82; PULSE 92; RESP 20; TEMP 36.8; O2SAT 97
[2024-09-21 19:32] VITALS: PULSE 88; O2SAT 95
--- NOTE | 2024-09-21 19:38 | ED.GENADULT ---
HPI - General Adult General Chief complaint: Unspecified Stated complaint: difficulty swallowing Time Seen by Provider: 09/21/24 19:31 History of Present Illness HPI narrative: Patient is 44-year-old male who presents to the emergency department this evening complaining of a sore throat for the past 2-3 days. States that he went to an urgent care and had a strep swab and COVID swab which were both negative. They did not have a doctor there so they sent him here for further evaluation. Patient states that it does hurt to swallow. He is able to swallow and keep down his secretions, food and drink without any difficulty. Patient states that he tried [id number] medications such as to Motrin and Tylenol with no relief. Denies any recent illness, fevers or chills. No additional symptoms or concerns at this time. Related Data Allergies Allergy/AdvReac Type Severity Reaction Status Date / Time No Known Allergies Allergy Verified 09/21/24 19:21 Review of Systems Review of Systems: All systems are reviewed and are negative unless stated otherwise in the HPI. [facility] Past Medical History Medical History Generalized anxiety disorder Tobacco abuse Chronic obstructive pulmonary disease Surgical History Surgical History History of mandibular surgery Family History Family History Father Cancer Social History Social History Smoking packs per day: 1 Smoking cigarettes per day: 20.0 Years smoked: 25 Smoking pack-years: 25.00 Smoking status: Current every day smoker Second hand tobacco smoke exposure: Yes Alcohol intake: former Substance use: never Substance use type: does not use Living arrangements: with family Occupation/Education: occupation 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 Gender identity (if verbalized by the patient): Male Exam Narrative: General: Alert, awake, afebrile, in no acute distress. HEENT: PERRL, no rhinorrhea, no post nasal drip, oropharynx erythema with enlarged tonsils, no exudates, no evidence of peritonsillar abscess. Neck: Trachea midline, no JVD, no lymphadenopathy. Cardiovascular: Regular rate and rhythm, no murmurs, rubs or gallops, no peripheral edema. Respiratory: Clear to auscultation bilaterally, no tachypnea, no wheezing, no rhonchi, no rubs, no respiratory distress. Abdomen: Soft, nontender, nondistended, no rebound, no guarding, no peritoneal signs. Musculoskeletal: No joint swelling or deformity, normal muscle tone. Skin: No rashes or petechia, no signs of infection. Psychiatric: Alert and oriented, normal behavior and judgment for situation. Neurological: Alert and oriented to person, place, and time. Follows all commands. No focal deficits, speech is clear and fluent. Course Vital Signs Vital signs: Vital Signs Temperature 98.3 F 09/21/24 19:18 Pulse Rate 92 09/21/24 19:18 Respiratory Rate 20 09/21/24 19:18 Blood Pressure 119/82 09/21/24 19:18 Pulse Oximetry 97 09/21/24 19:18 Oxygen Delivery Room Air 09/21/24 19:18 Temperature 98.3 F 09/21/24 19:18 Pulse Rate 88 09/21/24 19:32 Respiratory Rate 20 09/21/24 19:18 Blood Pressure 119/82 09/21/24 19:18 Pulse Oximetry 95 09/21/24 19:32 Oxygen Delivery Room Air 09/21/24 19:18 Medical Decision Making [facility] Narrative Medical decision making narrative: The patient was evaluated by myself in the emergency department. History is obtained from patient who is an independent historian and physical exam was performed. External medical records were reviewed at this time. IV was established and pertinent tests were ordered. Laboratory results obtained revealing a white blood cell count of 14.9 and an elevated CRP of 6.4 otherwise unremarkable. Imaging studies obtained included CT neck soft tissue with IV contrast which was independently interpreted by me revealing: IMPRESSION: 1. Grossly enlarged tonsils with enlargement of the lingual tonsils. 2. Bilateral lymphadenopathy in the parapharyngeal, posterior triangle and supraclavicular areas. Differential diagnosis considerations include pharyngitis viral versus bacterial, peritonsillar abscess, esophageal stricture. Comorbidities impacting this visit include none. I have evaluated and discussed social determinants of health with the patient that could potentially impact subsequent diagnosis and treatment plans. On repeat assessment of the patient, reevaluation revealed that the patient is doing well and is in no acute distress. Patient symptoms have improved since he arrived to our emergency department. Repeat vital signs were all reviewed and noted to be stable. Differential diagnosis and treatment plan were discussed with the patient at bedside. Patient agrees with discussion and after shared medical decision making agrees with discharge. All questions were answered to the patient's satisfaction. Patient will follow up with his PCP in 3-5 days. Also provided with an ENT referral instructed to follow up if the symptoms are improved within the next week. Patient was provided with strict return precautions and instructed to return to the emergency department if any new or worsening symptoms develop. The patient was discharged in stable condition. Vital Signs Vital Signs: Vital Signs Temperature 98.3 F 09/21/24 19:18 Pulse Rate 92 09/21/24 19:18 Respiratory Rate 20 09/21/24 19:18 Blood Pressure 119/82 09/21/24 19:18 Pulse Oximetry 97 09/21/24 19:18 Oxygen Delivery Room Air 09/21/24 19:18 Temperature 98.3 F 09/21/24 19:18 Pulse Rate 88 09/21/24 19:32 Respiratory Rate 20 09/21/24 19:18 Blood Pressure 119/82 09/21/24 19:18 Pulse Oximetry 95 09/21/24 19:32 Oxygen Delivery Room Air 09/21/24 19:18 Lab Data 09/21/24 19:47 09/21/24 19:47 Labs: Lab Results 09/21/24 09/21/24 09/21/24 Range/Units 19:47 19:47 19:47 WBC 14.9 H (4.5-10.0) K/mm3 RBC 5.55 (4.6-6.20) M/mm3 Hgb 15.7 (14.0-18.0) g/dL Hct 46.9 (42.0-52.0) % MCV 84.5 (80-100) fl MCH 28.3 (26-34) pg MCHC 33.5 (32-36) g/dl RDW 12.8 (11.5-14.5) % Plt Count 269 (150-375) k/mm3 MPV 9.0 (7.4-10.4) fl Immature Gran % (Auto) 0.3 (0-0.5) % Neut % (Auto) 78.9 H (45.5-73.1) % Lymph % (Auto) 9.8 L (18.3-44.2) % [place] % (Auto) 9.9 H (2.6-8.5) % Eos % (Auto) 0.6 (0-4.4) % Baso % (Auto) 0.5 (0.2-1.2) % Lymph # (Auto) 1.46 (0.9-3.2) K/mm3 [place] # (Auto) 1.5 H (0.1-0.6) K/mm3 Eos # (Auto) 0.1 (0-0.3) K/mm3 Baso # (Auto) 0.1 (0.0-0.1) K/mm3 Abs Immat Gran (auto) 0.05 H (0.00-0.031) K/mm3 Absolute Neuts (auto) 11.8 H (1.3-6.7) K/mm3 Absolute Nucleated RBC 0.000 (0.0-0.012) K/mm3 Nucleated RBC % 0.0 (0.0-0.2) % ESR 5 (0-20) mm/hr Sodium 135 L (137-145) mmol/L Potassium 3.9 (3.4-5.0) mmol/L Chloride 105 (98-107) mmol/L Carbon Dioxide 22 (22-30) mmol/L Anion Gap 8 (4-12) mmol/L BUN 13 D (9-20) mg/dL Creatinine 0.78 (0.7-1.3) mg/dL Estim Creat Clear Calc 106 ml/min Estimated GFR > 60 (59 - ) Glucose 99 (65-110) mg/dL Calcium 8.5 (8.4-10.2) mg/dL Magnesium 2.2 Cancelled (1.6-2.3) mg/dL Total Bilirubin 0.4 (0.2-1.3) mg/dL AST 37 (17-59) U/L ALT 18 (6-50) U/L Alkaline Phosphatase 80 (38-126) U/L C-Reactive Protein 6.4 H Cancelled (<1.0) mg/dL Total Protein 7.7 (6.3-8.2) g/dL Albumin 4.1 (3.5-5.1) g/dL Discharge Plan Discharge Clinical Impression: Pharyngitis Patient Disposition: Home Condition: Improved Instructions: Antibiotic Form, Pharyngitis (ED) Additional Instructions: Please follow-up with your family doctor within the next 3-5 days. Return to ED if any new or worsening symptoms develop. You also provided with an ENT referral instructed to call to set up a follow-up appointment if his symptoms do not improve within the next week. Use ghat-mtx-[id number] lozenges such as Cepacol to help with your symptoms. Patient Language: Khmer Prescriptions: No Action methylprednisolone [Medrol (Jaime)] 4 mg tablets,dose pack See Rx Instructions PO .COMPLEX Qty: 21 0RF Rx Instructions: orally per package directions cyclobenzaprine 10 mg tablet 10 mg PO Q8H PRN (Reason: muscle spasm) 7 Days Qty: 21 0RF hydrocodone-acetaminophen 5-325 mg tablet 1 tablet PO Q6H PRN (Reason: pain) Qty: 10 0RF cephalexin 500 mg capsule 500 mg PO Q6H 7 Days Qty: 28 0RF Follow-up/Referrals: Chalino Shaikh MD [Physician] - 1 Week Enrique Corea MD [Primary Care Provider] - 1 Week Time of Disposition: 21:28
[2024-09-21 19:53] LABS: Hematocrit 46.9 % (42.0-52.0); Hemoglobin 15.7 g/dL (14.0-18.0); Immature Granulocyte Percent A 0.3 % (0-0.5); Lymphocytes Absolute Auto 1.46 K/mm3 (0.9-3.2); Mean Corpuscular HGB Conc 33.5 g/dl (32-36); Mean Corpuscular Hemoglobin 28.3 pg (26-34); Mean Corpuscular Volume 84.5 fl (80-100); Nucleated Red Blood Cells Absolute Auto 0.000 K/mm3 (0.0-0.012); Nucleated Red Blood Cells Perc 0.0 % (0.0-0.2); Platelet Count Result 269 k/mm3 (150-375); Red Blood Count 5.55 M/mm3 (4.6-6.20); White Blood Count 14.9 K/mm3 (4.5-10.0)
[2024-09-21 20:16] LABS: Alanine Aminotransferase 18 U/L (6-50); Albumin Level 4.1 g/dL (3.5-5.1); Alkaline Phosphatase 80 U/L (38-126); Anion Gap 8 mmol/L (4-12); Aspartate Amino Transferase 37 U/L (17-59); Bilirubin,Total 0.4 mg/dL (0.2-1.3); Blood Urea Nitrogen 13 mg/dL (9-20); CRP 6.4 mg/dL (<1.0); Calcium 8.5 mg/dL (8.4-10.2); Carbon Dioxide 22 mmol/L (22-30); Chloride 105 mmol/L (98-107); Estimated CRCL calculation 106 ml/min; Estimated Glomerular Filt Rate > 60; Glucose 99 mg/dL (65-110); Magnesium 2.2 mg/dL (1.6-2.3); Potassium 3.9 mmol/L (3.4-5.0); Sodium 135 mmol/L (137-145); Total Protein 7.7 g/dL (6.3-8.2)
[2024-09-21 21:35] VITALS: BP 128/74; PULSE 85; RESP 18; O2SAT 98
== END 2024-09-21 21:36 | disposition home or self-care (01) ==
PROVIDERS: Emergency Provider Emergency Medicine; PCP Emergency Medicine
DX: J02.9 Acute pharyngitis, unspecified (principal); J44.9 Chronic obstructive pulmonary disease, unspecified; F17.210 Nicotine dependence, cigarettes, uncomplicated
CPT/HCPCS: 36415; 70491; 80053; 83735; 85025; 85652; 86140; 99284; Q9967